=== PATIENT | male | born 1965 | race Caucasian/White ===

== ENCOUNTER → 2023-07-25 16:20 | Outpatient (CLI) | payer BC, SELFPAY ==
--- NOTE | 2023-07-25 16:24 | XR_ITS ---
PROCEDURE INFORMATION: Exam: XR Right Foot Complete; Alignment Exam date and time: 07/25/2023 4:27 PM Age: 58 years old Clinical indication: Pain; Foot; Right; Additional info: Foot pain TECHNIQUE: Imaging protocol: Radiologic exam of the right foot. Views: 3 or more views. COMPARISON: No relevant prior studies available. FINDINGS: Bones/joints: No acute fractures, dislocations, or focal bone lesions. Cortical thickening and slight deformity in the distal 3rd of the 3rd metatarsal from an old healed fracture. Flattening of the articular head of the 2nd metatarsal and associated mild hypertrophic spurring bone hypertrophy involving the 1st, 2nd, and 3rd tarsal metatarsal joints. Flattening of the longitudinal arches. Hindfoot varus. Hammertoe deformities. Plantar heel spur. Soft tissues: Normal. IMPRESSION: 1. No acute findings in the right foot. 2. Old healed fracture in the distal 3rd of the right 3rd metatarsal. 3. 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 4. Moderately severe right midfoot osteoarthritis. 5. Flattening of the longitudinal arches in the right foot. Consider posterior tibial tendon dysfunction.
--- NOTE | 2023-07-25 17:27 | XR_ITS ---
PROCEDURE INFORMATION: Exam: XR Chest Exam date and time: 07/25/2023 5:27 PM Age: 58 years old Clinical indication: Screening exam; Pre-operative exam; Other: For lower extremity; Additional info: Preoperative exam TECHNIQUE: Imaging protocol: Radiologic exam of the chest. Views: 2 views. COMPARISON: No relevant prior studies available. FINDINGS: Lungs: No consolidation or lung nodules. Hyperinflation. Pleural spaces: No pleural effusion. No pneumothorax. Heart/Mediastinum: No abnormalities. No cardiomegaly. No pulmonary vascular congestion. Bones/joints: No fractures or bone lesions. IMPRESSION: Hyperinflation. No acute findings in the chest.
[2023-07-25 17:41] LABS: Basophils % 0.3 % (0.1-2.0); Eosinophils # 0.1 K/mm3 (0.0-0.4); Eosinophils % 1.3 % (0.1-12.0); Hematocrit 41.2 % (42.0-52.0); Hemoglobin 13.8 g/dL (14.1-18.0); Lymphocytes # 1.8 K/mm3 (0.7-4.5); Lymphocytes % 25.2 % (10-50); Mean Corpuscular HGB Conc 33.6 g/dL (31.8-35.4); Mean Corpuscular Hemoglobin 35.7 pg (27.0-31.2); Mean Corpuscular Volume 106.1 fl (80-94); Mean Platelet Volume 9.1 fl (7.4-10.4); Monocytes # 0.5 K/mm3 (0.1-1.0); Monocytes % 7.4 % (1.7-9.3); Neutrophils # 4.8 K/mm3 (1.8-7.8); Neutrophils % 65.8 % (37.0-80.0); Platelet Count 249 K/mm3 (142-424); Red Blood Count 3.88 M/mm3 (4.60-6.20); White Blood Count 7.3 K/mm3 (4.8-10.8)
[2023-07-25 18:36] LABS: Chloride 102 mmol/L (98-107); Potassium 4.4 mmoL/L (3.5-5.1); Sodium 142 mmol/L (136-145)
[2023-07-25 18:39] LABS: Alanine Aminotransferase 39 U/L (12-78); Albumin Level 4.5 g/dl (3.5-5.0); Albumin/Globulin Ratio 1.1 (1.1-1.8); Alkaline Phosphatase 134 U/L (38-126); Anion Gap 11.4 mEq/L (5-15); Aspartate Amino Transferase 52 U/L (17-59); Bilirubin,Total 0.5 mg/dl (0.2-1.3); Blood Urea Nitrogen 9 mg/dl (9-20); Carbon Dioxide 33 mmol/L (22.0-30.0); Estimated Glomerular Filt Rate 115 ml/min (>60); GFR (African American) 139 ML/MIN (>60); Total Protein,Serum 8.5 g/dl (6.3-8.2)
[2023-07-25 18:40] LABS: Glucose 102 mg/dl (74-100)
== END ==
LOC: LAB 16:20 → RAD 16:21
PROVIDERS: PCP Internal Medicine; Visit Provider Podiatrist
DX: Z01.818 Encounter for other preprocedural examination (principal); M79.671 Pain in right foot
CPT/HCPCS: 71046; 73630; 80053; 85025

== ENCOUNTER → 2023-07-31 12:37 | Outpatient (CLI) | payer BC, SELFPAY ==
--- NOTE | 2023-07-31 12:50 | ECG_ITS ---
APPROVED REPORT Exam: Resting ECG HR:90 bpm ECG Measurements Heart Rate 90 AXES MN 142 P 75 QRSd 90 QRS 31 QT 361 T 45 QTc 408 Conclusion SINUS RHYTHM NORMAL ECG UNCONFIRMED REPORT Electronically signed by : Ian Mcpherson MD 08/01/2023 17:12:24
== END ==
PROVIDERS: PCP Internal Medicine; Visit Provider Podiatrist
DX: Z01.818 Encounter for other preprocedural examination (principal); M79.671 Pain in right foot; M25.374 Other instability, right foot
CPT/HCPCS: 93005

== ENCOUNTER → 2023-08-16 07:35 | Outpatient (CLI) | payer BC, SELFPAY ==
--- NOTE | 2023-08-16 07:40 | CT_ITS ---
FINAL REPORT TECHNIQUE: Thin section axial CT images with coronal and sagittal reformats were performed. 3D reformatted images were obtained and reviewed. This study was performed with techniques to keep radiation doses as low as reasonably achievable (ALARA). Individualized dose reduction techniques using automated exposure control or adjustment of mA and/or kV according to the patient''s size were employed. CLINICAL HISTORY: Midfoot deformities/surgical planning COMPARISON: None FINDINGS: There is mild and moderate degenerative change of the midfoot with spurring at multiple levels. There is a loose body of the dorsal aspect of the 1st tarsometatarsal joint measuring 6 mm. There is a chronic fracture of the 3rd metatarsal with chronic deformity. There are no acute fractures. There are no masses or fluid collections. There are no soft tissue abnormalities. IMPRESSION: Degenerative and chronic changes as above without acute bony abnormality. 6 mm loose body dorsal aspect 1st tarsometatarsal joint. Reviewed, Interpreted and Dictated by Durga Pickering III, MD Transcribed by Alba Doran Authenticated and . [facility]
== END ==
PROVIDERS: PCP Internal Medicine; Visit Provider Podiatrist
DX: M19.071 Primary osteoarthritis, right ankle and foot (principal); M25.374 Other instability, right foot; M79.671 Pain in right foot
CPT/HCPCS: 73700

== ENCOUNTER 2023-08-24 06:08 | Day surgery (SDC) | payer BC, SELFPAY ==
[2023-08-22 13:59] VITALS: BMI 21.7
[2023-08-24] VITALS (10 sets, daily range): BP systolic 119–156; BP diastolic 80–93; PULSE 107–127; RESP 16–24; TEMP 36.2–37.4; O2SAT 93–99
--- NOTE | 2023-08-24 | XR_ITS ---
FINAL REPORT CLINICAL HISTORY: right flat foot reconstruction. fluoro time 1:00 1.60 mGy COMPARISON: None FINDINGS: FLUOROSCOPY LESS THAN 1 HOUR HISTORY: Fluoroscopy guidance. Fluoroscopic guidance was provided for right foot reconstruction. 2 spot films were obtained. A total of 1:00 minutes of fluoroscopy time were used. Total DAP: 1.60 mGy IMPRESSION: As above. Reviewed, Interpreted and Dictated by Kenneth Moreno MD Transcribed by Alba Doran Authenticated and [facility]
[2023-08-24] MEDS: LACTATED RINGERS 1000ML 1,000 ML 25 ML IV (06:54)
--- NOTE | 2023-08-24 07:25 | P.PNANES_ITS ---
[facility] Disclaimer: The information contained in this section may have been updated after the patient was seen, as this information can be updated by other users. Medical History Ileocecal valve syndrome Surgical History H/O hernia repair History of colonoscopy Family History Father Cancer Social History (Updated 08/24/23 @ 06:46 by Beth Villarreal RN) Smoking Status: Never smoker alcohol intake: never substance use type: denies use current occupational status: employed Travel in the last 8 weeks: None marital status: [facility] Anesthesia Checklist Patient Identification Patient Identification: Arm Band, Family and Verbal (Name & ) Structural Data Admitted From: Home Planned Operative Procedure/s: Fusion Consent for Planned Operative Procedure(s) Verified: Yes Verified Documents: Surgical Consent and History and Physical NPO Status Verified Time NPO: 07:00 (Mints) Chart Verification Results Verified: CBC, BMP, ECG and Chest Xray Additional verifications Patient : No Anesthesia Reactions: No Hx Blood Transfusions: No Blood Transfusion Reaction: No Cardiovascular Assessment Heart Sounds: S1 & S2 Pulse Rhythm: Irregular Airway Assessment Mallampati Score:: Class II C-Spine Mobility Assessed: Yes TMJ Mobility Assessed: Yes Dentition: Poor Dentition (Nothing loose per pt.) Neurological Assessment Level of Consciousness: Awake, Alert, Appropriate and Follows Commands Hx Seizures: No Numbness or tingling in extremities: No Anesthesia Plan Anesthesia Risk discussed: Yes Anesthesia Plan: Verified ASA Class: II Anesthesia Type: General
[2023-08-24] MEDS: CEFAZOLIN SODIUM 1 GM in 0.9 % SODIUM CHLORIDE 50 ML IV (07:42)
[2023-08-24] MEDS: BUPIVACAINE 0.5% 30ML VIAL 150 MG (08:06)
--- NOTE | 2023-08-24 10:03 | SUR.OPER ---
pt family updated by Pre-op nurse Alba at 1003
--- NOTE | 2023-08-24 12:17 | EXP.OP.NOTE ---
Date of procedure: 08/24/23 Pre-op Diagnosis:: Right flatfoot deformity Right foot osteoarthritis Hx Lisfranc fracture Hx 3rd met fracture Post-op Diagnosis:: Same Procedure performed:: Right Victoria calc osteotomy Right NC arthrodesis Right tarsometatarsal joint 1,2,3 arthrodesis Application of graft Surgeon:: SANDY Pickett DPM Anesthesia: GETA and regional Estimated blood loss (mL): 30 Clinical Note:: See Dr Denise's H&P Operative findings:: Flatfoot deformity with prominent navicular bone. Significant arthritis noted to the first second and third tarsometatarsal joints. Significant arthritis noted to the navicular cuneiform joint. History of third metatarsal fracture with healed third metatarsal. Operative note:: See Dr. Denise's op note. Standard timeout performed. Patient positioned supine with midcalf tourniquet. IV Ancef infused. Right lower extremity prepped and draped in normal sterile fashion. I was present for the entire case and I performed the Victoria calcaneal osteotomy. I was co-surgeon with Dr. Denise for remaining procedures. Attention directed to the lateral right foot where incision was mapped out over the calcaneocuboid joint. Dissection full-thickness down to the level of the bone. CC joint ligaments left intact. Approximately 1.5 cm proximal to the joint and osteotomy was made parallel to the joint. The osteotomy was distracted trial bone graft inserted. Area was flushed with saline. A 10 mm Victoria calcaneal bone graft wedge was inserted in standard technique without complication. A 20 mm staple was then applied dorsally to prevent the distal calcaneus from distracting anteriorly. Vicryl used to close deep and subcu. Nylon used to close skin. See Dr. Denise's op note for remaining procedures. Condition: stable Disposition: same day Complications:: None
[2023-08-24] MEDS: MEPERIDINE 25MG/ML 1ML SYRINGE 25 MG IV (13:04)
--- NOTE | 2023-08-24 13:04 | EXP.ANES.I ---
[facility] Anesthesia Record Part I Anesthesia Record I Intake, IV Amount: 1,900 Hydration: Adequate Estimated blood loss (mL): 150 Urine output (mL): 0 Blood Products used (#): none Blood Pressure: 141/93 SaO2: 99 Pulse Rate: 127 Airway Patency: Patent Respiratory Rate: 24 Temperature: 97.2 F Patient is:: Awake (Talking) and Stable Stable to PACU at:: 12:55
--- NOTE | 2023-08-24 16:34 | EXP.OP.NOTE ---
Date of procedure: 08/24/23 Pre-op Diagnosis:: Severe osteoarthritis multiple tarsal and mid tarsal and metatarsal joints of right foot; acquired flatfoot deformity; difficulty walking; progressive pain and arthritis. Post-op Diagnosis:: Same Procedure performed:: Victoria calcaneal osteotomy right foot with 10mm cadaver bone wedge to lengthen lateral column, improve arch height; fixated with staple. Multiple fusoin sites of Gwjbsbfewy-Szidkfjjmt-Wzdelmavk: Medial cuneiform-Navicular arthrodesis with staple fixation; Arthrodesis of the first metatarsal-medial Cuneiform joint and second metatarsal-intermediate cuneiform joint with Branscomb U -type plate fixation; Staple fixation across the third metatarsal-cuneiform to lateral cuneiform bone fusion; fusion of lateral cuneiform-navicular bone. Surgeon:: Buddy Denise DPM Sales And Service Representative(s):: Co-surgeon Dr. Jocelyn Ivey [employer] SPECIALIST:: Other Anesthesia: GETA Estimated blood loss (mL): 15 Clinical Note:: The patient was seen once again in the morning of planned surgical procedures for the right foot due to severe arthritis acquired flatfoot and pain and deformity of the right foot it was been progressive. The patient has been in anticipating the procedure and is accompanied by his today as well who we have spoken to in the office as well. The patient's condition is requiring multiple midfoot fusions as well as the Victoria calcaneal osteotomy. I explained to the patient that all the x-rays taken at [facility] as well as the CT scan of the right foot with focus at the heel and rear foot were examined by myself as well as Dr. Clarissa Ivey prior to and helping adjust the planned procedures for the patient. The patient and his have been aware that both myself and Dr. Tomlinson would be participating in the surgical arena together, sharing our combined skills to provide the best outcome possible for the patient. We were both present with the patient and his . I arrived first the morning of the surgery and spoke with the patient and his at bedside explaining the planned procedures of the Victoria osteotomy and why we came up with that decision based on the findings of the CT scan and to improve the length and position of his lateral column which would then affect and increase his arch. Also explained that the CT scan gave us more insight into the severity of the arthritis at the second and third metatarsal cuneiform levels as well as confirming the arthritic deformity at the navicular cuneiform level and that the talus and navicular still had a very healthy appearing joint articulation and alignment noted. With that in mind, we had altered our procedure to not include the talonavicular fusion but rather opt for the Victoria and multiple metatarsal cuneiform navicular arthrodesis with internal fixation using various plates and celso and hardware is appropriate intraoperatively. Answered all the patient's questions and concerns to their complete satisfaction as well as comfort level. When Dr. Tomlinson arrived we were introduced and she also discussed in detail the procedures above with the patient and were given and opportune amount of time to ask any kind of questions and concerns that they had as well. The 4 of us patient his as well as myself and Dr. Tomlinson have developed a good rapport and decision is made to proceed with the surgery. Consent is signed; the patient's surgical foot is initialed by myself; and the patient is then prepared for surgery with anesthesia department. Operative findings:: Severe arthritic changes noted at the jrzae-slnzex-bzpkb metatarsal-cuneiform joint levels; arthritis and collapsing deformities at first azxgynqllw-tsgtedaaq-pgecmsgwr level; arthritis cuneiforms-navicular; and acquired flatfoot deformity Right foot. Operative note:: On this date and time, the patient was deemed an appropriate surgical candidate. With informed consent signed, the patient was taken to the operating theater. The patient was positioned supine. General anesthesia was induced. Tourniquet was applied to the RIGHT mid calf. The RIGHT lower extremity was prepped and draped in normal sterile fashion. RIGHT VICTORIA CALCANEAL OSTEOTOMY: The tourniquet was inflated at 250 mmHg. Attention was directed to the lateral foot where the calcaneocuboid joint was mapped out under intraoperative fluoroscopy. The incision was made longitudinally superior but in line with the peroneal tendons. Dissection was carried through skin to subcutaneous tissue with care taken to maintain surgical hemostasis and safely retract neurovascular structures. The extensor digitorum brevis muscle belly was identified and reflected off the calcaneus superiorly. The peroneal tendons were identified and safely retracted inferiorly. The communicating branch between the intermediate dorsal cutaneous and visceral nerve was identified. Soft tissue attachments to the CCJ were preserved. CCK was identified and a sagittal saw was used to make a bone cut in line with the joint about 1.5 cm proximal to the joint. Next a distractor was inserted and an 8 mm bone wedge trial was inserted. Position was checked under intraoperative fluoroscopy there was reduction of some of the deformity but still some transverse plane deformity was noted. A 10 mm bone template was trialed. On the AP and lateral views there was increased arch height as well as decreased transverse plane deformity noted. The Vitcoria 10mm bone wedge was inserted after the wound had been flushed with copious amounts normal sterile saline. Upon insertion of the bone wedge and reduction and removal of the bone distractor, the graft was held well. A 20mm staple was then inserted buttressing the graft so it would not migrate laterally or anteriorly. Fluroscopy was utilized to take final position the osteotomy was noted to be in good alignment without penetration into the posterior facet, reduction of pes planus deformity noted. At this point wound closure was accomplished with 2-0 Vicryl 3-0 Vicryl and 3-0 nylon in mattress suture technique. Right foot multiple midfoot rear foot arthrodesis procedures: The anatomical landmarks were mapped out along the dorsal and medial midfoot, with the use of fluoroscopy to determine the placement of incisions at the navicular-medial cuneiform-first metatarsal side of the foot as well as dorsally between the second and third metatarsal bases and intermediate-lateral cuneiforms to the navicular on the dorsal aspect of the right foot. Incisions were made at both locations with care taken to preserve and protect vital neurovascular structures as incisions were deepened through the tissues. Bleeders were cauterized as well as ligated during the dissection. Fluroscopy used through steps of procedure for proper alignment. Dissected to bone to denude cartilage of the first metatarsal base, all articular cartilage sides of the medial cuneiform as well as the distal articulation site of the navicular to the cuneiforms. Also removed cartilage bases of the second and third metatarsals and dissected out all the cartilage on all sides of the intermediate cuneiform and the medial, distal, and proximal cartilage of the lateral cuneiform to the navicular attachment using a combination of osteotome, hairston elevators, curettes and entertainment dancer power bur and drill. Once all cartilaginous pieces of all those bones were removed, the bones were able to be manipulated into proper alignment and prepared for fixation devices of hardware. With the 2 incisions in the multiple joints dissected and visible agreeable to realign and determine the best fixation plates and celso for the fusions of the midfoot and the tarsal metatarsal joints. At TWO Hour time, the tourniquet was released at the 2-hour rea and other bleeders were identified and ligated. After 20 minutes were able to reinflate the tourniquet 250 mmHg and continue further with the procedures. We used Branscomb plates and screws as well as celso for the arthrodesis/fusion sites of the multiple joints. The Plate we used was from Mónica Rodriguez's first and second metatarsal cuneiform U-shaped plate which was aligned and fixated across the first and second and metatarsals and the cuneiform. It was temporarily positioned with olive pins; visualized with fluoroscopy; then inserted appropriate screws and hardware for fixation. We did also position the medial cuneiform and the navicular and using a 20 mm staple was used across the joint. Excellent fixation was noted. Then attention was directed to the dorsal aspect of the foot to the other incision and carefully aligned the third metatarsal to the lateral cuneiform and an 18 mm staple was used to arthrodesis across this joint and a 20 mm staple was used across the navicular lateral cuneiform joint as well. V92 bone matrix was applied throughout the entire midfoot rear foot fusion sites to facilitate healing and promote healthy growth of tissues and reduce the likelihood of nonunion or malunion. We closed the surgical incision sites with 2-0 Vicryl, 3-0 Vicryl, and 3-0 nylon suture. Dressed with Xeroform gauze on the 3 surgical incision sites of the right foot. Had also inserted a drain before complete closure of the medial side of the foot as there was where there was where there is more bleeding intraoperatively this was then directed out the dorsal ankle. Patient will be educated by nursing as far as the maintenance and emptying of the drain. Otherwise we will leave it intact until the follow-up appointment next week with Dr. Denise and his [place] office. The tourniquet had been released and prompt hyperemic response noted to all digits of the right foot. All toes have pinked up and are healthy and visible. A well-padded posterior splint is then also applied secured by an outer elastic bandage. Patient is to stay completely nonweightbearing for the next 4 to 6 weeks and will be monitored weekly and then biweekly in essence for the next 3 months. He is given postoperative medication of Phenergan and Percocet and doxycycline. He had also was receiving a popliteal nerve block post procedure for by the anesthesia department for management of pain. Patient understands to put ice on his ankle and/or behind the knee 20 minutes per waking hour to keep the feet out foot elevated is much as possible and to limit activity to a minimum. DVT prophylaxis is also discussed and educated upon that as well. Discharge/Plan: Plan to discharge home Patient is to maintain posterior splint clean dry and intact. Ice/polar pack behind the right knee and elevate on foam ramp or two pillows. Non weight bearing to the right lower extremity with crutches. Patient plans to rent a rolling knee scooter. Take Rx as previously directed. Rx given for Diana 7.5/325 #28, Zofran 4mg, Motrin 800mg. Obtain post op films, right foot 3 views. Follow up in one week. Tourniquet time (min): 220 (released for 20 minutes at the 120 minute rea; then reinflated for 100 more minutes to complete the case.) Condition: stable Disposition: PACU Complications:: negative
[2023-08-27 08:10] VITALS: BP 148/88; PULSE 118; RESP 18; TEMP 36.2; O2SAT 98
--- NOTE | 2023-08-27 08:10 | P.PNANES_ITS ---
[facility] Anesthesia Record Part II Anesthesia Record Part II Discharge Time: 13:20 Destination: Surgical Day Care (OP Surgery) PACU nurse assessment reviewed?: Yes Patient Condition:: Good Anesthesia Complications:: None Swallowing reflex intact?: Yes Airway Patency: Patent Cyanosis?: No Blood Pressure: 148/88 SaO2: 98 Respiratory Rate: 18 Pulse Rate: 118 Temperature: 97.1 F Mental Status: Alert & Oriented Pain level:: 0 Nausea and/or vomitting:: None Intake, IV Amount: 0 Hydration: Adequate
== END 2023-08-24 14:28 | disposition home or self-care (01) ==
PROVIDERS: PCP Internal Medicine; Visit Provider Podiatrist
PROC: (CPT 28730; principal; 2023-08-24 07:30)
DX: M79.671 Pain in right foot (principal); M19.071 Primary osteoarthritis, right ankle and foot; M25.374 Other instability, right foot; S93.324A Dislocation of tarsometatarsal joint of right foot, initial encounter; M21.41 Flat foot [pes planus] (acquired), right foot
CPT/HCPCS: 28300; 28730; 73620; 73630; 76000; 96374; C1713; C1776; J2405